=== PATIENT | male | born 1955 | race African-American/Black ===

== ENCOUNTER 2022-01-21 07:32 | Emergency (ER) | payer BC, MEDICARE ==
[2022-01-21] MEDS ORDERED: Acetaminophen 500 MG TAB ONE (07:58)
== END 2022-01-21 08:40 | disposition home or self-care (01) ==
LOC: ERS 07:32
DX: M25.561 Pain in right knee (principal); F17.220 Nicotine dependence, chewing tobacco, uncomplicated
CPT/HCPCS: 99283